=== PATIENT | male | born 1965 | race Caucasian/White ===

== ENCOUNTER 2021-01-08 12:51 | Inpatient (IN) ==
[2021-01-08 13:28] LABS: ABS Basophils 0.1 10^3/ul (0-0.2); ABS Eosinophils 0.1 10^3/ul (0-0.6); ABS Lymphocytes 2.5 10^3/ul (1.0-4.8); ABS Monocytes 1.4 10^3/ul (0-0.8); ABS Neutrophils 10.2 10^3/ul (1.5-7.7); Eosinophil % 0.7 %; Hematocrit 47 % (42-52); Lymphocyte % 17.4 %; Mean Corpuscular HGB Conc 34 g/dL (31-36); Mean Corpuscular Hemoglobin 33 pg (27-31); Mean Corpuscular Volume 95 fL (80-94); Mean Platelet Volume 7.7 fL (7.4-10.4); Nucleated Red Blood Cells % 0.1; Platelet Count 344 10^3/uL (150-450); Red Blood Count 4.89 10^6 /uL (4.18-5.48); Red Cell Distribution Width 14 % (10-15); White Blood Count 14.2 10^3/uL (3.5-10.8)
[2021-01-08 13:36] LABS: Activated Partial Thrombo Time 33.2 seconds (26.0-38.0); INR 1.08 (0.86-1.15)
[2021-01-08 13:47] LABS: Troponin I 0.01 ng/mL (<0.03)
[2021-01-08 14:29] LABS: Alcohol, S < 10 mg/dL (<10)
[2021-01-08 14:49] LABS: ALT 8 U/L (7-52); AST 14 U/L (13-39); Albumin 4.4 g/dL (3.2-5.2); Alkaline Phosphatase 72 U/L (35-149); Anion Gap 11 mmol/L (2-11); Blood Urea Nitrogen 23 mg/dL (6-24); CO2 Carbon Dioxide 26 mmol/L (22-32); Chloride 100 mmol/L (101-111); EGFR African American 95.7 (>60); EGFR Non-African American 79.1 (>60); Globulin 2.2 g/dL (2-4); Glucose 111 mg/dL (70-100); Lipase 14 U/L (11.0-82.0); Magnesium 2.2 mg/dL (1.9-2.7); Potassium 4.5 mmol/L (3.5-5.0); Sodium 137 mmol/L (135-145); Total Protein 6.6 g/dL (6.4-8.9)
[2021-01-08] MEDS ORDERED: Iohexol 300 (CONTRAST) 10 ML SDV IV ONE (15:01)
[2021-01-08 16:02] LABS: Urine Appearance Clear; Urine Bilirubin Negative (Negative); Urine Blood 1+ (Negative); Urine Color Yellow; Urine Glucose Negative (Negative); Urine Ketones 1+ (Negative); Urine Nitrite Negative (Negative); Urine Protein Negative (Negative); Urine Specific Gravity 1.038 (1.002-1.030); Urine Urobilinogen Negative (Negative)
[2021-01-08 16:07] LABS: Urine Amorphous Crystals Present (Absent); Urine Bacteria Absent (Absent); Urine Red Blood Cell 2+(6-10/hpf) (Absent); Urine White Blood Cell Trace(0-5/hpf) (Absent)
[2021-01-08] MEDS ORDERED: Pantoprazole VIAL 40 MG VIAL IV ONE (16:35)
[2021-01-08] MEDS ORDERED: Pantoprazole 80 mg in NS BAG 80 MG/250 ML BAG IV ONE (16:35)
[2021-01-08] MEDS ORDERED: Ondansetron 4 mg VIAL 2 MG/ML 2 ml VIAL IV PRN (17:39)
[2021-01-08] MEDS ORDERED: Morphine 2 MG/ML SYRINGE IV ONE (21:24)
[2021-01-08 22:09] LABS: Hematocrit 43 % (42-52); Hemoglobin 14.3 g/dL (14.0-18.0)
[2021-01-09] MEDS: Pantoprazole 80 mg in NS BAG 80 MG/250 ML BAG IV SCH ×2 (04:24→14:22)
[2021-01-09 06:16] LABS: ABS Basophils 0.1 10^3/ul (0-0.2); ABS Eosinophils 0.2 10^3/ul (0-0.6); ABS Lymphocytes 3.4 10^3/ul (1.0-4.8); ABS Monocytes 1.1 10^3/ul (0-0.8); ABS Neutrophils 7.4 10^3/ul (1.5-7.7); Eosinophil % 1.5 %; Hematocrit 40 % (42-52); Hemoglobin 13.6 g/dL (14.0-18.0); Lymphocyte % 28.1 %; Mean Corpuscular HGB Conc 34 g/dL (31-36); Mean Corpuscular Hemoglobin 33 pg (27-31); Mean Corpuscular Volume 97 fL (80-94); Platelet Count 284 10^3/uL (150-450); Red Blood Count 4.12 10^6 /uL (4.18-5.48); Red Cell Distribution Width 14 % (10-15); White Blood Count 12.1 10^3/uL (3.5-10.8)
[2021-01-09 06:22] LABS: Calcium 8.5 mg/dL (8.6-10.3); EGFR African American 101.6 (>60); EGFR Non-African American 83.9 (>60); Potassium 4.1 mmol/L (3.5-5.0)
[2021-01-09] MEDS ORDERED: Lidocaine 2% PF 5 ML VIAL ONE (12:14)
[2021-01-09] MEDS ORDERED: Midazolam 2 mg/2 ml VIAL 1 mg/ml 2 ml VIAL (2 mg) ONE (12:14)
[2021-01-09] MEDS ORDERED: Propofol 10 MG/ML 20 ML BTL ONE (12:14)
[2021-01-09] MEDS ORDERED: fentaNYL 100 mcg/2 ml 50 MCG/ML VIAL ONE (12:15)
[2021-01-09] MEDS ORDERED: Ondansetron 4 mg VIAL 2 MG/ML 2 ml VIAL ONE (12:47)
[2021-01-09] MEDS ORDERED: diPHENhydraMINE IV 50 MG/ML 1 ml VIAL (BENADRYL) IV PRN (13:22)
[2021-01-09] MEDS ORDERED: Naloxone 0.4 mg VIAL 0.4 mg/ml 1 ml VIAL IV PRN (13:22)
[2021-01-09] MEDS ORDERED: DiMENhydriNATE IV 50 mg/ml 1 ml VIAL IV PUSH PRN (13:22)
[2021-01-09 14:13] LABS: Hematocrit 41 % (42-52); Hemoglobin 13.9 g/dL (14.0-18.0)
[2021-01-09 20:59] LABS: Hematocrit 38 % (42-52)
[2021-01-10] MEDS: Pantoprazole 80 mg in NS BAG 80 MG/250 ML BAG IV SCH ×3 (00:33→22:43)
[2021-01-10 00:42] LABS: Hematocrit 37 % (42-52); Hemoglobin 12.6 g/dL (14.0-18.0)
[2021-01-10 06:01] LABS: Hematocrit 39 % (42-52); Hemoglobin 13.3 g/dL (14.0-18.0)
[2021-01-10] MEDS ORDERED: Magnesium Hydroxide LIQ 30 ML UDC PO PRN (10:27)
[2021-01-10] MEDS ORDERED: Senna TAB 8.6 mg TAB PO PRN (10:27)
[2021-01-10] MEDS ORDERED: Polyethylene Glycol 3350 17 GM PACKET PO PRN (10:27)
[2021-01-10 12:24] LABS: Hematocrit 39 % (42-52); Hemoglobin 13.2 g/dL (14.0-18.0)
[2021-01-10 18:01] LABS: Hematocrit 39 % (42-52); Hemoglobin 13.4 g/dL (14.0-18.0)
[2021-01-11 00:31] LABS: Hematocrit 38 % (42-52); Hemoglobin 12.8 g/dL (14.0-18.0)
[2021-01-11] MEDS: Pantoprazole 80 mg in NS BAG 80 MG/250 ML BAG IV SCH ×3 (04:07→19:48)
[2021-01-11 05:38] LABS: Hematocrit 41 % (42-52); Hemoglobin 13.9 g/dL (14.0-18.0)
[2021-01-11 12:34] LABS: Hematocrit 40 % (42-52); Hemoglobin 13.3 g/dL (14.0-18.0)
[2021-01-11 18:27] LABS: Hematocrit 41 % (42-52); Hemoglobin 13.6 g/dL (14.0-18.0)
[2021-01-12 09:02] VITALS: BP 115/75
== END 2021-01-12 12:00 | disposition home or self-care (01) | DRG 253 ==
LOC: ED 12:51 → MED 18:33
PROVIDERS: ADMIT Internal Medicine; ATTEND Internal Medicine
PROC: O.GIEGD (2021-01-09 12:15)